=== PATIENT | male | born 1980 | race Caucasian/White ===

== ENCOUNTER → 2016-05-16 | Outpatient (CLI) | payer OTHER ==
[~2016-05-16] MED LIST: FIORTAL 325 MG-1 TAB PO; FLEXERIL10 MG PO; HYDROCODONE BIT1 T11 PO; MOTRIN800 MG PO; NORCO 325 MG-51 TAB PO; ZANTAC150 MG PO
== END | disposition home or self-care (01) ==
LOC: RAD 07:23
DX: K21.9 Gastro-esophageal reflux disease without esophagitis (principal)

== ENCOUNTER 2016-08-10 04:14 | Inpatient (IN) | payer OTHER ==
[2016-08-10] VITALS (7 sets, daily range): BP systolic 117–144; BP diastolic 70–88
[~2016-08-10] VITALS: Ht 188 cm; Wt 83.1 kg
--- NOTE | ~2016-08-10 | WRIGHTHP ---
[place], [place] PATIENT HISTORY AND PHYSICAL EXAM NAME: THERESA TERRY [facility] #: [id number] UNIT #: [id number] ROOM: 516 DOCTOR: RHYS HARRINGTON DO BIRTHDATE: [birth year] DOS: 08/10/2016 PRIMARY CARE PHYSICIAN: . Patient was seen and evaluated with the resident on 08/10/2016. Please see the resident's note for further details. ASSESSMENT: 1. Dizziness, now resolved. 2. Sinus bradycardia. 3. False positive findings on chest x-ray showing an infiltrate. A followup CTA of the chest was negative for infiltrate. The patient does not have pneumonia. 4. Anxiety with history of panic attacks. 5. Gastroesophageal reflux disease. 6. History of migraines. PLAN: The patient's symptoms have resolved. He is feeling back to normal at this time. He denies chest pain or dizziness. He denies shortness of breath. He has no cough. Cardiology has evaluated the patient and are okay with discharge. He will be discharged today and he will follow up tomorrow for an outpatient stress test that has already been scheduled. This has been explained to the patient and he understands. RHYS HARRINGTON DO CM:HISPHYS:PATIENT HISTORY AND PHYSICAL EXAMINATION [id number] RHYS HARRINGTON DO 08/10/16 1613 interface
--- NOTE | ~2016-08-10 | CON ---
[place], [place] REPORT OF CONSULTATION [facility] [id number] UNIT #: [id number] ROOM: 516 DOCTOR: ASTON WINTERS MD BIRTHDATE: [birth year] DOS: 08/10/2016 REASON FOR CONSULTATION: Bradycardia. HISTORY OF PRESENT ILLNESS: The patient is a 36-year-old gentleman with no previous cardiac history other than bradycardia, came to the Emergency Room because of dizziness. Apparently last night, he noted to have some dizziness and chills and diaphoresis, but no syncope, no chest pain, no palpitations. No nausea, vomiting. No headaches. No shortness of breath, no orthopnea. No hematuria or dysuria. He is physically active and does swimming regularly and he is aware that he has a slow heart rate. His father and grandfather also had some "slow heart rate." Cardiology consult for further recommendations regarding his bradycardia. The patient also complains of occasional intermittent burning pain in the epigastric area, which he attributes to acid reflux. This is mostly resting pain and burning, no radiation, no associated symptoms. The pain relieves on its own. He does take Protonix 40. REVIEW OF SYSTEMS: Review of 10 systems negative except as mentioned above. PAST MEDICAL HISTORY: Bradycardia, anxiety, acid reflux, migraine headaches and panic disorder. PAST SURGICAL HISTORY: History of appendectomy, history of upper endoscopy. SOCIAL HISTORY: The patient does not smoke or drink, does not use illicit drugs. FAMILY HISTORY: Mother has hypertension. Father has bradycardia and atrial fibrillation. ALLERGIES: THE PATIENT IS ALLERGIC TO CIPRO. HOME MEDICATIONS: Protonix, Reglan, and Celexa. PHYSICAL EXAMINATION: VITAL SIGNS: Blood pressure 144/88, pulse 77, respiratory rate 16. GENERAL: Alert, comfortable, in no acute distress. HEENT: Pupils are round and equal. No jaundice. Tongue was moist and pharynx was clear. NECK: Supple, no distended neck veins, no carotid bruit. CHEST: Symmetrical, nontender. LUNGS: Clear to auscultation bilaterally. HEART: Regular rhythm, no S3, no palpable thrills. ABDOMEN: Benign, nontender. Bowel sounds normal. No palpable masses. EXTREMITIES: No edema. Distal pulses are palpable. SKIN: Warm and dry. No cyanosis, no clubbing. RECTAL: Deferred. GENITOURINARY: Deferred. MUSCULOSKELETAL: No joint tenderness. [place], [place] REPORT OF CONSULTATION NAME: THERESA TERRY [facility] #: [id number] UNIT #: [id number] ROOM: 516 DOCTOR: SINGH LUGO,ASTON BIRTHDATE: [birth year] REVIEW OF THE DIAGNOSTIC TESTS: EKG, rhythm strips and labs reviewed. IMPRESSION: 1. Sinus bradycardia, possibly due to high vagal tone from his physical activity. 2. Dizziness and diaphoresis last night. 3. Atypical chest pain, appears to be acid reflux. 4. History of anxiety disorder. RECOMMENDATIONS: 1. I would check his TSH to rule out hypothyroidism due to bradycardia. 2. Recurrent bradycardia, resolved. 3. I would recommend just an exercise treadmill test to see his response to treadmill and also see if he is able to achieve higher heart rates on the treadmill and also look for any arrhythmias. If he wanted to go home today, then he can be discharged and then we can schedule outpatient stress test. If his TSH is abnormal, then I would defer to Dr. Cain for further recommendations. ASTON WINTERS MD CM:CONSTR:REPORT OF CONSULTATION 1703 08/10/16 3528 interface
[2016-08-10] MEDS ORDERED: PROTONIX40 MG PO (04:20)
[2016-08-10 04:51] LABS: BASO # 0.1 10*3/uL (0.0-0.1); BASO % 0.6 % (0.0-1.0); EOS # 0.1 10*3/uL (0.0-0.4); EOS % 1.1 % (1.0-4.0); HEMATOCRIT 45.4 % (42.0-52.0); HEMOGLOBIN 16.2 g/dl (14.0-18.0); LYMPH # 3.1 10*3/uL (1.3-4.4); LYMPH % 33.5 % (27.0-41.0); MEAN CELL VOLUME 80.6 fl (80.0-94.0); MEAN CORPUSCULAR HGB 28.8 pg (27.0-31.0); MEAN CORPUSCULAR HGB CONC 35.7 g/dl (33.0-37.0); MEAN PLATELET VOLUME 9.8 fl (9.6-12.3); MONO # 0.8 10*3/uL (0.1-1.0); NEUT # 5.3 10*3/uL (2.3-7.9); NEUT % 56.4 % (47.0-73.0); PLATELET COUNT AUTOMATED 314 10*3/uL (130-400); RED BLOOD COUNT 5.63 10*6/uL (4.50-5.90); WHITE BLOOD COUNT 9.3 10*3/uL (4.8-10.8)
[2016-08-10 05:01] LABS: PROTHROMBIN TIME 10.9 SECONDS (9.0-12.4)
[2016-08-10 05:07] LABS: ALBUMIN 4.4 gm/dl (3.1-4.5); ALKALINE PHOSPHATASE 82 U/L (45-117); BILIRUBIN, TOTAL 1.1 mg/dl (0.2-1.0); BUN 15 mg/dl (7-24); CARBON DIOXIDE 22 mmol/L (21-32); CHLORIDE 104 mmol/L (98-107); EST GLOM FILT AFRICAN AMERICAN > 60 ml/min; GLUCOSE 116 mg/dL (65-99); POTASSIUM 3.6 mmol/L (3.5-5.1); SGOT/AST 15 IU/L (3-35); SGPT/ALT 32 U/L (12-78); SODIUM 140 mmol/L (136-145); TOTAL PROTEIN 7.7 gm/dL (6.4-8.2)
[2016-08-10 05:08] LABS: TROPONIN I < 0.015 ng/ml (<0.045)
[2016-08-10] MEDS ORDERED: CELEXA20 MG PO (06:15)
[2016-08-10] MEDS ORDERED: REGLAN10 M1 PO (06:42)
== END 2016-08-10 14:38 | disposition home or self-care (01) | DRG 308 ==
LOC: ED 04:14 → 5E 05:40
PROVIDERS: Emergency Medicine Emergency Medical Services
DX: R00.1 Bradycardia, unspecified (principal); J18.9 Pneumonia, unspecified organism; K21.9 Gastro-esophageal reflux disease without esophagitis; F41.0 Panic disorder [episodic paroxysmal anxiety]; F41.1 Generalized anxiety disorder; Z90.49 Acquired absence of other specified parts of digestive tract; Z82.49 Family history of ischemic heart disease and other diseases of the circulatory system; Z88.1 Allergy status to other antibiotic agents; Z79.899 Other long term (current) drug therapy; G43.909 Migraine, unspecified, not intractable, without status migrainosus

== ENCOUNTER → 2016-08-11 | Outpatient (CLI) | payer OTHER ==
[~2016-08-11] MED LIST changes: +CELEXA20 MG PO; +PROTONIX40 MG PO; +REGLAN10 M1 PO
--- NOTE | ~2016-08-11 | ST ---
[place], [place] EXERCISE STRESS TEST REPORT NAME: THERESA TERRY [facility] #: [id number] UNIT #: [id number] ROOM: DOCTOR: PREMA LUGO,SOFIA BIRTHDATE: [birth year] DOS: 08/11/2016 REFERRING PHYSICIAN: . INDICATION: Central chest pain. The patient underwent standard Sandeep protocol stress testing. The patient's resting EKG shows normal sinus bradycardia. No ischemic changes. The patient's baseline heart rate was 54 with a blood pressure 116/78. The patient exercised for a total of 10 minutes and 25 seconds reaching a maximal heart rate of 171, which represents 93%. The patient's peak heart rate was 171 with a blood pressure 142/84. The patient at peak exercise had 2/10 chest pain. This resolved 30 seconds into recovery. No ischemic changes were noted. No arrhythmias were noted. SUMMARY OF FINDINGS: Low risk stress test to a high workload. The patient's Martinez Treadmill score is 5.5 portending a low risk prognosis. The patient had mild chest pain at peak. Overall low-risk study. SOFIA LLOYD MD CM:STRESS:EXERCISE STRESS TEST REPORT 1350 0003 SOFIA LLOYD MD
== END | disposition home or self-care (01) ==
LOC: CARD 12:00
DX: R00.1 Bradycardia, unspecified (principal); R07.89 Other chest pain; R55 Syncope and collapse; R42 Dizziness and giddiness; R06.02 Shortness of breath

== ENCOUNTER 2018-08-18 05:19 | Emergency (ER) | payer OTHER ==
[~2018-08-18] VITALS: Ht 187.9 cm; Wt 98.8 kg
--- NOTE | ~2018-08-18 | EKG ---
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
--- NOTE | ~2018-08-18 | EKG ---
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
[2018-08-18 05:55] LABS: BASO # 0.1 10*3/uL (0.0-0.1); BASO % 0.6 % (0.0-1.0); EOS # 0.2 10*3/uL (0.0-0.4); EOS % 1.7 % (1.0-4.0); HEMATOCRIT 44.8 % (42.0-52.0); HEMOGLOBIN 15.4 g/dl (14.0-18.0); LYMPH # 3.3 10*3/uL (1.3-4.4); LYMPH % 29.3 % (27.0-41.0); MEAN CORPUSCULAR HGB 28.5 pg (27.0-31.0); MEAN CORPUSCULAR HGB CONC 34.4 g/dl (33.0-37.0); MONO # 1.1 10*3/uL (0.1-1.0); MONO % 9.2 % (3.0-9.0); NEUT # 6.7 10*3/uL (2.3-7.9); NEUT % 58.8 % (47.0-73.0); PLATELET COUNT AUTOMATED 291 10*3/uL (130-400); WHITE BLOOD COUNT 11.4 10*3/uL (4.8-10.8)
[2018-08-18 06:12] LABS: ALBUMIN 4.2 gm/dl (3.1-4.5); ALKALINE PHOSPHATASE 88 U/L (45-117); BUN 12 mg/dl (7-24); CHLORIDE 105 mmol/L (98-107); CREATININE 1.17 mg/dL (0.70-1.30); POTASSIUM 3.7 mmol/L (3.5-5.1); SGOT/AST 19 IU/L (3-35); SGPT/ALT 41 U/L (12-78); SODIUM 140 mmol/L (136-145); TOTAL PROTEIN 7.6 gm/dL (6.4-8.2)
[2018-08-18 06:15] LABS: TROPONIN I < 0.015 ng/ml (<0.045)
[2018-08-18 06:18] LABS: ACT PARTIAL THROMBO TIME 27.2 SECONDS (20.0-32.1)
[2018-08-18] MEDS ORDERED: Motrin,Rufen800 MG PO (10:07)
== END 2018-08-18 10:26 | disposition home or self-care (01) ==
LOC: ED 05:19
PROVIDERS: Emergency Medicine Emergency Medical Services
DX: M94.0 Chondrocostal junction syndrome [Tietze] (principal); R07.89 Other chest pain; K21.9 Gastro-esophageal reflux disease without esophagitis; G43.909 Migraine, unspecified, not intractable, without status migrainosus; Z88.1 Allergy status to other antibiotic agents; Z79.899 Other long term (current) drug therapy

== ENCOUNTER → 2020-03-07 | Outpatient (CLI) | payer BC ==
[~2020-03-07] MED LIST changes: +Motrin,Rufen800 MG PO
== END | disposition home or self-care (01) ==
LOC: RAD 15:58
PROVIDERS: ATTEND Physician Assistant
DX: R10.32 Left lower quadrant pain (principal)

== ENCOUNTER 2020-03-12 16:31 | Emergency (ER) | payer BC ==
[~2020-03-12] VITALS: Wt 102.1 kg
[2020-03-12 19:11] LABS: BASO # 0.1 10*3/uL (0.0-0.1); BASO % 0.8 % (0.0-1.0); EOS # 0.1 10*3/uL (0.0-0.4); EOS % 1.6 % (1.0-4.0); HEMATOCRIT 45.8 % (42.0-52.0); LYMPH # 2.3 10*3/uL (1.3-4.4); LYMPH % 26.3 % (27.0-41.0); MEAN CELL VOLUME 82.1 fl (80.0-94.0); MEAN CORPUSCULAR HGB 28.3 pg (27.0-31.0); MEAN CORPUSCULAR HGB CONC 34.5 g/dl (33.0-37.0); MEAN PLATELET VOLUME 9.7 fl (9.6-12.3); MONO # 0.7 10*3/uL (0.1-1.0); MONO % 8.1 % (3.0-9.0); NEUT # 5.4 10*3/uL (2.3-7.9); PLATELET COUNT AUTOMATED 322 10*3/uL (130-400); RED BLOOD COUNT 5.58 10*6/uL (4.50-5.90); RED CELL DISTRI WIDTH 11.9 % (0-14.5); WHITE BLOOD COUNT 8.5 10*3/uL (4.8-10.8)
[2020-03-12 19:29] LABS: ALBUMIN 3.9 gm/dl (3.1-4.5); ALKALINE PHOSPHATASE 90 U/L (45-117); BUN 12 mg/dl (7-24); CHLORIDE 107 mmol/L (98-107); CREATININE 1.08 mg/dL (0.70-1.30); LIPASE 85 U/L (73-393); POTASSIUM 3.9 mmol/L (3.5-5.1); SGOT/AST 16 IU/L (3-35); SGPT/ALT 42 U/L (12-78); SODIUM 137 mmol/L (136-145); TOTAL PROTEIN 7.6 gm/dL (6.4-8.2)
== END 2020-03-12 22:09 | disposition home or self-care (01) ==
LOC: ED 16:31
PROVIDERS: Internal Medicine
DX: K42.9 Umbilical hernia without obstruction or gangrene (principal); Z88.1 Allergy status to other antibiotic agents; Z79.899 Other long term (current) drug therapy

== ENCOUNTER → 2021-02-20 | Outpatient (CLI) | payer BC | END | disposition home or self-care (01) | LOC: COVID19 14:57 | PROVIDERS: ATTEND Internal Medicine | DX: U07.1 COVID-19 (principal) ==